=== PATIENT | male | born 1970 ===

== ENCOUNTER 2018-02-11 16:14 | Emergency (ER) | payer MEDICARE, MEDICAID ==
[2018-02-11] MEDS ORDERED: Lorazepam 2 MG/ML VIAL ONE (16:20)
[2018-02-11 16:40] LABS: #Basophils 0.1 thou/uL (0.0-0.2); #Eosinphils 0.2 thou/uL (0.0-0.7); #Monocytes 0.5 thou/uL (0.11-0.59); #Neutrophils 4.7 thou/uL (1.40-6.50); %Basophils 0.6 % (0.0-1.0); %Eosinophils 2.5 % (0.0-10.0); %Lymphocytes 35.2 % (21.0-51.0); %Monocytes 6.1 % (0.0-10.0); %Neutrophils 55.6 % (42.0-75.0); Hemoglobin 15.9 g/dL (14.0-18.0); Mean Corpuscular HGB CONC 34.7 g/dL (32.0-36.0); Mean Corpuscular Hemoglobin 30.9 pg (27.0-31.0); Mean Corpuscular Volume 88.9 fl (80.0-94.0); Platelet Count 221 thou/uL (130-400); RBC Distribution Width 11.8 % (11.5-14.5); Red Blood Cell (RBC) Count 5.14 mill/uL (4.70-6.10); White Blood Cell (WBC) Count 8.4 thou/uL (4.8-10.8)
[2018-02-11 17:00] LABS: ALT (SGPT) 15 U/L (8-55); AST (SGOT) 15 U/L (5-34); Albumin 4.3 g/dL (3.5-5.0); Alkaline Phosphatase 52 U/L (40-150); Anion Gap 17 mmol/L (10-20); BUN (Urea Nitrogen) 15 mg/dL (8.9-20.6); Bilirubin, Total 0.8 mg/dL (0.2-1.2); Calc. Creatinine Clearance 0 mL/min (70-130); Calcium 9.8 mg/dL (7.8-10.44); Carbon Dioxide 19 mmol/L (22-29); Chloride 107 mmol/L (98-107); Estimated GFR-MDRD 67; Globulin 3.2 g/dL (2.4-3.5); Glucose 173 mg/dL (70-105); Potassium 3.5 mmol/L (3.5-5.1); Protein, Total 7.5 g/dL (6.0-8.3); Sodium 139 mmol/L (136-145)
[2018-02-11 17:04] LABS: CKMB 1.1 ng/mL (0-6.6); Troponin I Less than 0.010 ng/mL (< 0.028)
[2018-02-11 17:22] LABS: Acetaminophen Less than 6.0 mcg/mL (10.0-30.0); Alcohol Less than 10 mg/dL (Less than 10); Salicylate Less than 8.0 mg/dL (15.0-30.0)
--- NOTE | 2018-02-11 17:26 | CT ---
HEAD CT WITHOUT CONTRAST: 02/11/18 COMPARISON: None. HISTORY: Seizures. TECHNIQUE: Serial axial CT imaging obtained at 5 mm intervals from the vertex through the skull base without con trast. FINDINGS: Mild mucosal thickening of alveolar recess right maxillary sinus noted. Imaged paranasal sinuses/mast oid air cells otherwise unremarkable. No displaced calvarial fracture. No intracranial hemorrhage, mi dline shift, mass effect or ventricular enlargement. IMPRESSION: No acute findings. If there is concern for a seizure focus, followup brain MRI suggested. POS: [facility]
[2018-02-11] MEDS ORDERED: Divalproex Sodium DR 500 MG TAB PO SCH (17:30)
--- NOTE | 2018-02-11 18:17 | CT ---
CERVICAL SPINE CT WITHOUT CONTRAST: 02/11/18 COMPARISON: None. HISTORY: Seizures, confusion, altered mental status. TECHNIQUE: Serial axial CT imaging at 2.5 mm intervals from skull base through the lung apices without contrast. Coronal and sagittal reformatted imaging obtained. FINDINGS: Imaged lung apices demonstrate minimal increased linear density on the right. Imaged paranasal sinuse s and mastoid air cells are well aerated. C1 ring appears intact. There is prominent degenerative calli nge at the craniocervical junction on the right. The dens and C1-2 articulation demonstrate no acute findings. There is degenerative change at the atlantoaxial interspace. There is straightening of the normal cervical lordosis with no anterolisthesis or retrolisthesis seen. The cervicothoracic junction appears intact. No displaced fracture or evidence of dislocation is seen. Osseous detail is slightly limited secondar y to motion at C5, C6 and C7 levels. At C5-6 and C6-7, there is disc space narrowing with posterior o steophyte formation leading to a degree of central canal stenosis, most prominent at C6-7. Not well a ssessed on routine CT. IMPRESSION: Degenerative change. No acute fracture or dislocation is apparent. POS: [facility]
== END 2018-02-11 19:00 | disposition home or self-care (01) ==
LOC: ERS 16:14
DX: G40.909 Epilepsy, unspecified, not intractable, without status epilepticus (principal); I10 Essential (primary) hypertension; Z79.899 Other long term (current) drug therapy
CPT/HCPCS: 36416; 70450; 72125; 80053; 80164; 80307; 82553; 84146; 84484; 85025; 93005; 96361; 96374; J2060